=== PATIENT | female | born 1965 | race Caucasian/White ===

== ENCOUNTER → 2017-10-16 | Outpatient (CLI) | payer OTHER ==
[2017-10-16 14:54] LABS: EOS # 0.2 (0.04-0.40); HEMATOCRIT 43.7 % (37.0-47.0); HEMOGLOBIN 14.7 g/dL (12.5-16.0); LYMPH# 2.1 (1.50-4.00); MEAN CELL VOLUME 94 fl (78-100); MEAN CORPUSCULAR HEMOGLOBIN 32 pg (27-31); MEAN CORPUSCULAR HGB CONC 34 g/dL (33-37); MEAN PLATELET VOLUME 9.5 fl (7.4-10.4); MONO # 0.6 (0.20-0.80); NEU # 4.6 (1.40-6.50); PLATELET COUNT 268 K/mm3 (130-400); RED BLOOD COUNT 4.64 M/mm3 (4.10-5.30); WHITE BLOOD COUNT 7.4 K/mm3 (4.8-10.8)
[2017-10-16 15:11] LABS: ALBUMIN 4.2 g/dL (3.5-5.0); CALCIUM 8.8 mg/dL (8.4-10.2); POTASSIUM 3.9 mmol/L (3.6-5.0); TOTAL BILIRUBIN 0.8 mg/dL (0.2-1.3)
== END ==
LOC: LAB 14:45
PROVIDERS: Nurse Practitioner Family
DX: Z01.419 Encounter for gynecological examination (general) (routine) without abnormal findings (principal); Z12.31 Encounter for screening mammogram for malignant neoplasm of breast; M81.0 Age-related osteoporosis without current pathological fracture; F51.01 Primary insomnia; G25.81 Restless legs syndrome

== ENCOUNTER → 2017-11-14 | Outpatient (CLI) | payer OTHER | LOC: MAMMO 10:33 | DX: Z12.31 Encounter for screening mammogram for malignant neoplasm of breast (principal); M81.0 Age-related osteoporosis without current pathological fracture; F51.01 Primary insomnia; G25.81 Restless legs syndrome ==

== ENCOUNTER → 2019-02-27 | Outpatient (CLI) | payer OTHER ==
[2019-02-27 09:42] LABS: BASO # 0.1 (0.02-0.10); EOS # 0.1 (0.04-0.40); EOS % 2.1 % (1.0-5.0); HEMATOCRIT 45.8 % (37.0-47.0); HEMOGLOBIN 15.5 g/dL (12.5-16.0); LYMPH# 1.8 (1.50-4.00); MEAN CELL VOLUME 94 fl (78-100); MEAN CORPUSCULAR HEMOGLOBIN 32 pg (27-31); MEAN CORPUSCULAR HGB CONC 34 g/dL (33-37); MEAN PLATELET VOLUME 9.3 fl (7.4-10.4); MONO # 0.8 (0.20-0.80); NEU # 3.9 (1.40-6.50); PLATELET COUNT 321 K/mm3 (130-400); RED BLOOD COUNT 4.89 M/mm3 (4.10-5.30); RED CELL DISTRIBUTION WIDTH 12.2 % (11.5-14.5); WHITE BLOOD COUNT 6.7 K/mm3 (4.8-10.8)
[2019-02-27 09:59] LABS: ALBUMIN 4.6 g/dL (3.5-5.0); POTASSIUM 4.4 mmol/L (3.5-5.1)
[2019-02-27 10:00] LABS: CALCIUM 9.8 mg/dL (8.3-10.5)
[2019-02-27 10:02] LABS: TOTAL PROTEIN 7.5 g/dL (6.4-8.3)
[2019-02-27 10:03] LABS: TOTAL BILIRUBIN 1.3 mg/dL (0.2-1.2)
== END ==
LOC: LAB 09:24
PROVIDERS: Family Medicine
DX: Z01.419 Encounter for gynecological examination (general) (routine) without abnormal findings (principal); Z12.31 Encounter for screening mammogram for malignant neoplasm of breast; M81.0 Age-related osteoporosis without current pathological fracture; F51.01 Primary insomnia; G25.81 Restless legs syndrome

== ENCOUNTER → 2019-03-07 | Outpatient (CLI) | payer OTHER | LOC: RAD 09:15 → MAMMO 09:15 | DX: Z01.419 Encounter for gynecological examination (general) (routine) without abnormal findings (principal); Z12.31 Encounter for screening mammogram for malignant neoplasm of breast; Z13.820 Encounter for screening for osteoporosis; M81.0 Age-related osteoporosis without current pathological fracture; F51.01 Primary insomnia; G25.81 Restless legs syndrome ==

== ENCOUNTER → 2019-07-01 | Outpatient (CLI) | payer OTHER ==
[2019-07-01 12:03] LABS: EOS # 0.1 (0.04-0.40); EOS % 2.3 % (1.0-5.0); HEMATOCRIT 42.4 % (37.0-47.0); HEMOGLOBIN 14.2 g/dL (12.5-16.0); LYMPH# 1.8 (1.50-4.00); MEAN CELL VOLUME 94 fl (78-100); MEAN CORPUSCULAR HEMOGLOBIN 32 pg (27-31); MEAN CORPUSCULAR HGB CONC 34 g/dL (33-37); MEAN PLATELET VOLUME 9.4 fl (7.4-10.4); MONO # 0.6 (0.20-0.80); NEU # 2.7 (1.40-6.50); PLATELET COUNT 276 K/mm3 (130-400); RED BLOOD COUNT 4.49 M/mm3 (4.10-5.30); RED CELL DISTRIBUTION WIDTH 12.1 % (11.5-14.5); WHITE BLOOD COUNT 5.2 K/mm3 (4.8-10.8)
[2019-07-01 12:20] LABS: ALBUMIN 4.3 g/dL (3.5-5.0); POTASSIUM 3.9 mmol/L (3.5-5.1)
[2019-07-01 12:21] LABS: CALCIUM 9.1 mg/dL (8.3-10.5)
[2019-07-01 12:22] LABS: TOTAL PROTEIN 6.5 g/dL (6.4-8.3)
[2019-07-01 12:24] LABS: TOTAL BILIRUBIN 1.3 mg/dL (0.2-1.2)
[2019-07-01 13:37] LABS: ERYTHROCYTE SEDIMENTATION RATE 3 mm/hr (0-30)
== END ==
LOC: LAB 11:46
PROVIDERS: Family Medicine
DX: Z00.00 Encounter for general adult medical examination without abnormal findings (principal); Z12.11 Encounter for screening for malignant neoplasm of colon; M81.0 Age-related osteoporosis without current pathological fracture; G25.81 Restless legs syndrome; R20.2 Paresthesia of skin

== ENCOUNTER → 2020-02-06 | Outpatient (CLI) | payer OTHER ==
[2020-02-10 23:38] LABS: .COPPER,S 0.99 mcg/mL (())
== END ==
LOC: LAB 08:11
PROVIDERS: Internal Medicine
DX: K90.9 Intestinal malabsorption, unspecified (principal); G25.81 Restless legs syndrome

== ENCOUNTER → 2020-04-13 | Outpatient (CLI) | payer OTHER | LOC: LAB 07:22 | DX: R51.9 Headache, unspecified (principal); R53.83 Other fatigue; M79.10 Myalgia, unspecified site; Z20.828 Contact with and (suspected) exposure to other viral communicable diseases ==

== ENCOUNTER 2020-08-21 13:22 | Emergency (ER) | payer OTHER ==
[2020-08-21] MEDS ORDERED: VITAMIN D21250 MCG PO (13:34)
[2020-08-21] MEDS ORDERED: ZOLPIDEM TART10 MG PO (13:34)
[2020-08-21 13:57] LABS: HEMATOCRIT 42.3 % (37.0-47.0); HEMOGLOBIN 14.5 g/dL (12.5-16.0); MEAN CELL VOLUME 93 fl (78-100); MEAN CORPUSCULAR HEMOGLOBIN 32 pg (27-31); MEAN CORPUSCULAR HGB CONC 34 g/dL (33-37); MEAN PLATELET VOLUME 9.5 fl (7.4-10.4); PLATELET COUNT 263 K/mm3 (130-400); RED BLOOD COUNT 4.55 M/mm3 (4.10-5.30); RED CELL DISTRIBUTION WIDTH 11.7 % (11.5-14.5); WHITE BLOOD COUNT 6.1 K/mm3 (4.8-10.8)
[2020-08-21 14:06] LABS: ALBUMIN 3.9 g/dL (3.5-5.0); SODIUM 136 mmol/L (136-145)
[2020-08-21 14:07] LABS: CALCIUM 8.8 mg/dL (8.3-10.5)
[2020-08-21 14:09] LABS: GLUCOSE 131 mg/dL (65-105); LYMPHOCYTE 15 % (20-51); MONOCYTE 5 % (3-10); TOTAL PROTEIN 6.2 g/dL (6.4-8.3)
[2020-08-21 14:10] LABS: CARBON DIOXIDE 22 mmol/L (22-29); NEUTROPHILS 80 % (42-75); TOTAL BILIRUBIN 1.7 mg/dL (0.2-1.2)
[2020-08-21 14:14] LABS: AST-SGOT 20 U/L (5-34)
[2020-08-21 14:15] LABS: ALT/SGPT 18 U/L (0-55)
[2020-08-21 14:22] LABS: TROPONIN-I < 0.03 ng/mL (<0.030)
[2020-08-21] MEDS ORDERED: IMITREX6 MG/0.52 SQ (17:00)
[2020-08-21 18:02] VITALS: BP 107/62
== END 2020-08-21 17:55 | disposition home or self-care (01) ==
LOC: ED 13:22
PROVIDERS: Nurse Practitioner Primary Care
DX: G43.909 Migraine, unspecified, not intractable, without status migrainosus (principal)
CPT/HCPCS: J1200; J1885; J2405; J2550; J3030; J7030

== ENCOUNTER → 2020-10-20 | Outpatient (CLI) | payer OTHER ==
[~2020-10-20] MED LIST: IMITREX6 MG/0.52 SQ; VITAMIN D21250 MCG PO; ZOLPIDEM TART10 MG PO
== END ==
LOC: PT 08:58 → CARDREHAB 08:58 → PT 11:31
DX: G47.19 Other hypersomnia (principal)
CPT/HCPCS: G0399

== ENCOUNTER → 2021-06-10 | Outpatient (CLI) | payer OTHER | LOC: MAMMO 08:30 | DX: Z12.31 Encounter for screening mammogram for malignant neoplasm of breast (principal); M81.0 Age-related osteoporosis without current pathological fracture ==

== ENCOUNTER → 2021-07-05 | Outpatient (CLI) | payer OTHER ==
[~2021-07-05] VITALS: Ht 157.5 cm; Wt 52.3 kg
[2021-07-05 09:32] VITALS: BP 147/96
[2021-07-05 10:22] LABS: BASO # 0.03 K/mm3 (0.02-0.10); EOS # 0.09 K/mm3 (0.04-0.40); EOS % 2.6 % (1.0-5.0); HEMATOCRIT 44.8 % (37.0-47.0); HEMOGLOBIN 15.4 g/dL (12.5-16.0); LYMPH# 1.46 K/mm3 (1.50-4.00); MEAN CELL VOLUME 94 fl (78-100); MEAN CORPUSCULAR HEMOGLOBIN 32 pg (27-31); MEAN CORPUSCULAR HGB CONC 34 g/dL (33-37); MONO # 0.29 K/mm3 (0.20-0.80); RED BLOOD COUNT 4.79 M/mm3 (4.10-5.30); RED CELL DISTRIBUTION WIDTH 11.6 % (11.5-14.5); WHITE BLOOD COUNT 3.5 K/mm3 (4.8-10.8)
[2021-07-05 10:36] LABS: ALBUMIN 4.3 g/dL (3.5-5.0)
[2021-07-05 10:37] LABS: CALCIUM 9.4 mg/dL (8.3-10.5)
[2021-07-05 10:38] LABS: TOTAL PROTEIN 6.9 g/dL (6.4-8.3)
[2021-07-05 10:40] LABS: TOTAL BILIRUBIN 1.6 mg/dL (0.2-1.2)
[2021-07-05 11:29] LABS: PLATELET COUNT 68 K/mm3 (130-400)
== END ==
LOC: AMSURD 07-01 13:46
PROVIDERS: Family Medicine
DX: Z00.00 Encounter for general adult medical examination without abnormal findings (principal); Z12.11 Encounter for screening for malignant neoplasm of colon; E78.5 Hyperlipidemia, unspecified; J45.909 Unspecified asthma, uncomplicated; G47.00 Insomnia, unspecified; G47.33 Obstructive sleep apnea (adult) (pediatric); G25.81 Restless legs syndrome; E55.9 Vitamin D deficiency, unspecified; F41.1 Generalized anxiety disorder; M81.0 Age-related osteoporosis without current pathological fracture
CPT/HCPCS: J3489

== ENCOUNTER → 2021-07-07 | Outpatient (CLI) | payer OTHER ==
[~2021-07-07] VITALS: Ht 157.5 cm; Wt 52.3 kg
[2021-07-07 08:24] VITALS: BP 110/65
== END ==
LOC: AMSURD 07:44
DX: Z51.81 Encounter for therapeutic drug level monitoring (principal)
CPT/HCPCS: J3489

== ENCOUNTER → 2021-11-11 | Outpatient (CLI) | payer OTHER | LOC: LAB 13:27 | DX: R05.1 Acute cough (principal); Z20.822 Contact with and (suspected) exposure to COVID-19 ==

== ENCOUNTER → 2023-08-14 | Outpatient (CLI) | payer OTHER ==
[2023-08-14 10:11] LABS: BASO # 0.03 K/mm3 (0.02-0.10); EOS % 1.8 % (1.0-5.0); HEMATOCRIT 43.4 % (37.0-47.0); HEMOGLOBIN 14.6 g/dL (12.5-16.0); LYMPH# 1.56 K/mm3 (1.50-4.00); MEAN CELL VOLUME 96 fl (78-100); MEAN CORPUSCULAR HEMOGLOBIN 32 pg (27-31); MEAN CORPUSCULAR HGB CONC 34 g/dL (33-37); MEAN PLATELET VOLUME 9.3 fl (7.4-10.4); MONO # 0.55 K/mm3 (0.20-0.80); NEU # 3.26 K/mm3 (1.40-6.50); PLATELET COUNT 269 K/mm3 (130-400); RED CELL DISTRIBUTION WIDTH 11.6 % (11.5-14.5); WHITE BLOOD COUNT 5.5 K/mm3 (4.8-10.8)
[2023-08-14 10:16] LABS: ALBUMIN 4.4 g/dL (3.5-5.0)
[2023-08-14 10:17] LABS: CALCIUM 9.2 mg/dL (8.3-10.5)
[2023-08-14 10:18] LABS: TOTAL PROTEIN 6.5 g/dL (6.4-8.3)
[2023-08-14 10:20] LABS: TOTAL BILIRUBIN 1.6 mg/dL (0.2-1.2)
== END ==
LOC: LAB 09:52
PROVIDERS: Family Medicine
DX: Z12.39 Encounter for other screening for malignant neoplasm of breast (principal); M50.322 Other cervical disc degeneration at C5-C6 level; M51.34 Other intervertebral disc degeneration, thoracic region; M48.02 Spinal stenosis, cervical region; E78.5 Hyperlipidemia, unspecified; E55.9 Vitamin D deficiency, unspecified; I10 Essential (primary) hypertension

== ENCOUNTER → 2023-08-23 | Outpatient (CLI) | payer OTHER ==
[~2023-08-23] VITALS: Ht 157.5 cm; Wt 53.0 kg
[~2023-08-23] MED LIST changes: +IMITREX 25MG TA25 MG PO; +IMITREX100 M1 PO; +MELOXICAM15 MG PO; +Zoledronic Acid 100 ML IV ONE
[2023-08-23 11:21] VITALS: BP 91/62
[2023-08-23 12:19] VITALS: BP 98/66
== END ==
LOC: AMSURD 11:03
DX: M81.0 Age-related osteoporosis without current pathological fracture (principal)
CPT/HCPCS: J3489

== ENCOUNTER → 2023-11-16 | Outpatient (CLI) | payer OTHER ==
[~2023-11-16] MED LIST changes: -Zoledronic Acid 100 ML IV ONE
== END ==
LOC: MAMMO 13:59
DX: Z12.31 Encounter for screening mammogram for malignant neoplasm of breast (principal); M81.0 Age-related osteoporosis without current pathological fracture

== ENCOUNTER → 2024-02-29 | Outpatient (CLI) | payer OTHER | LOC: LAB 09:38 | DX: R05.1 Acute cough (principal) ==